=== PATIENT | male | born 1995 | race Caucasian/White ===

== ENCOUNTER → 2021-05-11 09:52 | Outpatient (BNVA) | payer OTHER, SELFPAY | PROVIDERS: Family Provider Family Medicine; PCP Family Medicine | DX: Z20.822 Contact with and (suspected) exposure to COVID-19 (principal) | CPT/HCPCS: 87635 ==

== ENCOUNTER → 2021-06-26 11:39 | Outpatient (BNVA) | payer OTHER, SELFPAY | PROVIDERS: Family Provider Family Medicine; Visit Provider Registered Nurse Neonatal Intensive Care | DX: Z20.822 Contact with and (suspected) exposure to COVID-19 (principal) | CPT/HCPCS: 87400; 87635; 87880 ==

== ENCOUNTER 2024-05-14 20:20 | Inpatient (IN) | payer OTHER, SELFPAY ==
[2024-05-14 20:24] VITALS: BP 130/79; PULSE 81; RESP 18; TEMP 36.4; O2SAT 97; BMI 23.7
--- NOTE | 2024-05-14 20:34 | ECG_ITS ---
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 Measurements Intervals [place] Rate: 63 P: 66 WI: 152 QRS: 89 QRSD: 89 T: 30 QT: 394 QTc: 406 Interpretive Statements SINUS RHYTHM Normal EKG No previous ECG available for comparison Electronically Signed On 05-15-2024 12:11:18 CDT by Becky Paz M.D. [email or web address]
--- NOTE | 2024-05-14 21:03 | ED.C_ITS ---
HPI - Psych 2 General: Chief Complaint: Psychiatric Symptoms Stated Complaint: MHE Time Seen by Provider: 05/14/24 20:26 History of Present Illness: 29-year-old man with severe PTSD after t he of a child recently who presents to the emergency room with family who had concern that he is having a breakdown and may be a danger to himself. He has admission planned to a more long-term care unit next week but they feel like he needs admitted today as he may be a threat to himself. He is not willing to speak with me much at this time. He says he is told the story and I can talk to the nurse. Related Data Previous Rx's Medication Instructions Recorded naproxen 500 mg tablet,delayed 500 mg PO BID #14 tabs 04/12/21 release (EC-Naproxen) tizanidine 2 mg tablet 2 mg PO Q6H PRN muscle spasticity 04/12/21 #20 tabs amoxicillin 500 mg capsule 500 mg PO BID 10 days #20 caps 06/26/21 Allergies Allergy/AdvReac Type Severity Reaction Status Date / Time peanut Allergy Severe ALGY-Swell Verified 06/26/21 11:36 Lip/Tongue/Throat cayenne pepper fruits Allergy ALGY-Swell Verified 06/26/21 11:36 Lip/Tongue/Throat Review of Systems 2 Narrative: Constitutional symptoms: Negative except as documented in HPI. Skin symptoms: Negative except as documented in HPI. Eye symptoms: Negative except as documented in HPI. ENMT symptoms: Negative except as documented in HPI. Respiratory symptoms: Negative except as documented in HPI. Cardiovascular symptoms: Negative except as documented in HPI. Gastrointestinal symptoms: Negative except as documented in HPI. Genitourinary symptoms: Negative except as documented in HPI. Musculoskeletal symptoms: Negative except as documented in HPI. Neurologic symptoms: Negative except as documented in HPI. Psychiatric symptoms: Negative except as documented in HPI. Endocrine symptoms: Negative except as documented in HPI. Physical Exam 2 Narrative: EXAM NARRATIVE: General: Alert, no acute distress. Skin: Warm, dry. Head: Normocephalic, atraumatic. Neck: Supple, trachea midline. Eye: Extraocular movements are intact. Ears, nose, mouth and throat: mucosa moist. Cardiovascular: Regular, Normal peripheral perfusion. Respiratory: Lungs are clear to auscultation, respirations are non-labored, breath sounds are equal, Symmetrical chest wall expansion. Gastrointestinal: Soft, Nontender, Non distended Musculoskeletal: Normal ROM, no deformity. Neurological: Alert and oriented, No focal neurological deficit observed. Psychiatric: Patient appears anxious and quite agitated at this time Course 2 Vital Signs: Vital signs: Vital Signs Temperature 97.5 F L 05/14/24 20:24 Pulse Rate 81 05/14/24 20:24 Respiratory Rate 18 05/14/24 20:24 Blood Pressure 130/79 05/14/24 20:24 Pulse Oximetry 97 05/14/24 20:24 [facility] - Psych Medical Decision Making Differential diagnosis: Patient with reported depression and suicidal ideation. concerns for infection, alcohol intoxication, cardiac issues or other medical problems prior to psychiatric admission. Workup: labwork, ekg ordered to evaluate the pathologies and to clear the patient medically prior to psychiatric admission Lab Review: Laboratory results were reviewed and interpreted by myself the emergency room physician. Lab review: - Medically cleared. - EKG shows no ischemic changes. - Blood alcohol level is negative, -Tylenol and salicylate levels are negative. -Urinalysis and drug screen are pending at admission - No anemia. - BUN and creatinine are within normal limits. Consultation: I spoke with Dr. Saba who agrees to admission Assessment and plan: PTSD Anxiety Agitation -Admission to neuropsychiatric unit for continued evaluation and treatment. - All lab work was reviewed and interpreted personally by myself, the ER physician - Evaluation and treatment of this problem were appropriate in the emergency setting Lab Data 05/14/24 21:30 05/14/24 21:30 Laboratory Results WBC 7.98 10^3/uL (3.29-11.43) 05/14/24 21:30 RBC 5.01 10^6/uL (3.85-5.65) 05/14/24 21:30 Hgb 14.80 g/dL (11.27-16.99) 05/14/24 21: Hct 43.9 % (37-53) 05/14/24 21: MCV 87.6 fl (82-101) 05/14/24 21:30 MCH 29.5 pg (27-33) 05/14/24 21: MCHC 33.7 g/dL (30-55) 05/14/24 21: RDW 11.9 % (12.1-15.1) L 10/30/24 21:30 Plt Count 215 10^3/cmm (157-399) 05/14/24 21:30 MPV 10.1 fL (7.4-10.4) 05/14/24 21: Neut % (Auto) 60.9 % 05/14/24 21: Lymph % (Auto) 30.6 % 05/14/24 21: Griggs % (Auto) 6.4 % 05/14/24 21: Eos % (Auto) 1.4 % 05/14/24 21:30 Baso % (Auto) 0.4 % 05/14/24 21: Neut # (Auto) 4.87 10^3/uL (1.8-7.7) 05/14/24: Lymph # (Auto) 2.4 10^3/uL (0.8-4.8) 05/14/24 21:30 Griggs # (Auto) 0.5 10^3/uL (0.2-0.9) 05/14/24 21: Eos # (Auto) 0.1 10^3/uL (0.0-0.8) 05/14/24 21: Baso # (Auto) 0.0 10^3/uL (0.0-0.1) 05/14/24: Nucleated RBC % (auto) 0 % 05/14/24: Nucleated RBCs # 0.0 /100WBC 05/14/24 21:30 Sodium 138 mmol/L (136-145) 05/14/24 21:30 Potassium 4.3 mmol/L (3.5-5.1) 05/14/24 21:30 Chloride 101 mmol/L (98-107) 05/14/24 21:30 Carbon Dioxide 27 mmol/L (22-29) 05/14/24 21:30 Anion Gap 14.3 (5-19) 05/14/24 21:30 BUN 12 mg/dL (6-20) 05/14/24 21:30 Creatinine 0.9 mg/dL (0.7-1.2) 05/14/24 21:30 GFR Calculation 99.1 mL/min (90-130) 05/14/24 21:30 Glucose 96 mg/dL (65-115) 05/14/24 21:30 Calculated Osmolality 286 mOsm/kg (285-295) 05/14/24 21:30 Calcium 9.0 mg/dL (8.5-10.5) 05/14/24 21:30 Total Bilirubin 0.5 mg/dL (0.15-1.2) 05/14/24 21:30 AST 38 U/L (0-40) 05/14/24 21:30 ALT 22 U/L (0-41) 05/14/24 21:30 Alkaline Phosphatase 134 U/L (40-130) H 05/14/24 21:30 Total Protein 7.8 g/dL (6.6-8.7) 05/14/24: Albumin 4.6 g/dL (3.5-5.2) 05/14/24: Globulin 3.2 g/dL (1.3-4.6) 05/14/24 21:30 TSH 1.39 uIU/mL (0.27-4.20) 05/14/24 21:30 Salicylates < 0.3 mg/dL (3-10) L 05/14/24 21:30 Acetaminophen < 5.0 ug/mL (10-30) L 05/14/24 21:30 Ethyl Alcohol < 10 mg/dL (0-10) 05/14/24 21:30 No radiology studies performed this visit Discharge Plan Discharge Patient Disposition: Admitted As Inpatient Admit Provider: Donald Saba Clinical Impression: Depression, Post traumatic stress disorder, Agitation Condition: Stable Coding Level of Care Code ED [employer] Laboratory Assistant for Davy Lin
--- NOTE | 2024-05-14 21:18 | PC.NURSE ---
Addendum entered by Denita Hogan RN 05/14/24 23:17: Dr. Moreno went into patient's room and attempted to speak to him about the Hold and patient would not listen to Dr. Moreno & patient told Dr. Moreno to leave his room. 96 Hour Involuntary Hold Rights have been placed with patient's personal items. Original Note: Attempted to read 96 Hour Involuntary Hold Patient Rights, patient took Rights paper away from me and crumpled it up and handed it back to me and stated I'm not here for this, I want to speak to someone to tell me why I'm here. Patient then asked Rug Dry Room Attendant Johnny Arana to escort me out of his room.
[2024-05-14 21:37] LABS: Basophils % 0.4 %; Eosinophils # 0.1 10^3/uL (0.0-0.8); Eosinophils % 1.4 %; Hematocrit 43.9 % (37-53); Lymphocytes # 2.4 10^3/uL (0.8-4.8); Lymphocytes % 30.6 %; Mean Corpuscular HGB Conc 33.7 g/dL (30-55); Mean Corpuscular Hemoglobin 29.5 pg (27-33); Mean Corpuscular Volume 87.6 fl (82-101); Mean Platelet Volume 10.1 fL (7.4-10.4); Monocytes # 0.5 10^3/uL (0.2-0.9); Monocytes % 6.4 %; Neutrophils # 4.87 10^3/uL (1.8-7.7); Neutrophils % 60.9 %; Nucleated Red Blood Cells % 0 %; Platelet Count 215 10^3/cmm (157-399); Red Blood Count 5.01 10^6/uL (3.85-5.65); Red Cell Distribution Width 11.9 % (12.1-15.1); White Blood Count 7.98 10^3/uL (3.29-11.43)
[2024-05-14 22:03] LABS: Acetaminophen < 5.0 ug/mL (10-30); Alanine Aminotransferase 22 U/L (0-41); Albumin Level 4.6 g/dL (3.5-5.2); Alcohol Level < 10 mg/dL (0-10); Alkaline Phosphatase 134 U/L (40-130); Anion Gap 14.3 (5-19); Aspartate Amino Transferase 38 U/L (0-40); Blood Urea Nitrogen 12 mg/dL (6-20); Carbon Dioxide 27 mmol/L (22-29); Chloride 101 mmol/L (98-107); Creatinine Clr Calc Pharmacy 144.5841; Globulin 3.2 g/dL (1.3-4.6); Glomerular Filtration Rate 99.1 mL/min (90-130); Glucose 96 mg/dL (65-115); Osmolality Calculated 286 mOsm/kg (285-295); Potassium 4.3 mmol/L (3.5-5.1); Salicylate < 0.3 mg/dL (3-10); Sodium 138 mmol/L (136-145); Thyroid Stimulating Hormone 1.39 uIU/mL (0.27-4.20); Total Bilirubin 0.5 mg/dL (0.15-1.2); Total Protein 7.8 g/dL (6.6-8.7)
[2024-05-14 22:52] VITALS: BP 121/72; PULSE 73; RESP 20; TEMP 36.9; O2SAT 98
[2024-05-14 23:23] VITALS: RESP 18
[2024-05-15 06:00] VITALS: BP 98/66; PULSE 63; RESP 18; O2SAT 99
--- NOTE | 2024-05-15 09:04 | PC.OT ---
OT EVALUATION ATTEMPTED; PATIENT VISITING WITH NURSE AND THEN AIRPORT REFUELING HANDLER. WILL ATTEMPT AGAIN LATER TODAY.
[2024-05-15] MEDS: diphenhydrAMINE 50 mg/mL SDV 1mL IM (14:45)
[2024-05-15] MEDS: LORazepam 2 mg/mL INJ 1 mL IM (14:45)
[2024-05-15] MEDS: haloperidol inj 5 mg/mL INJ 1 mL IM (14:45)
--- NOTE | 2024-05-15 16:49 | W.PM.NPUH&PS ---
Providers/Chief Complaint Admitting Physician: Donald Saba MD Chief Complaint: MHE HPI NPU History of Present Illness Rubio Conte is a 29 year old male who presented to the emergency department accompanied by family members. The family members had provided an affidavit including the patient himself stating that they were concerned that Rubio was having a mental breakdown. The family had been concerned that the patient may be a danger to himself. The patient was admitted to the neuropsychiatric unit for further evaluation and treatment. The patient was an extremely guarded and agitated historian and was unable to provide any meaningful information regarding his reason for being here. The patient allegedly had endured a tragedy when his child of approximately 1 year had due to medical causes in the home in December 2023. The patient had allegedly witnessed the of the child and had apparently been holding child after his . The patient had described to staff having problems with intense nightmares and difficulty falling asleep. The patient had allegedly been unable to take this event out of his mind and had been having reoccurring thoughts and visions regarding the of his child. The patient had reported to staff that he was having plans to leave here immediately and reported that he had already had made plans to go to a long-term facility. The patient on interview had expressed displeasure that the team had not interviewed him earlier requesting that the database report writer of this note having been present immediately after admission. He had stated that he was upset that the database report writer of this note was not certain of what medications he was on. At that point, the patient had stated that he did not wish to talk to the database report writer of the note any longer and became agitated to the point that he had required as needed medications due to significant aggression. The patient had extraordinary irritability. He had allegedly been on medications reportedly Vyvanse, Viibryd, propranolol, and prazosin prescribed by a nurse practitioner and had the he had discontinued these medications 2 weeks ago with family members reporting significant changes in mood and increased anger and agitation noted. Patient had not endorsed any illicit drug use or alcohol use currently. Inpatient psychiatric history: None reported Outpatient psychiatric history: Unknown, although the patient had been placed on medications including Vyvanse, Viibryd, propranolol, and prazosin at unspecified doses. Medical history: None Surgical history: none Allergies: Peanut, cayenne pepper foods Current medications: None Substance abuse history unknown Legal history: Unknown Family psychiatric history: Unknown Social history: Patient is and has other children in the home. 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 He had reported the traumatic of a child 2023. Meds NPU Home Medications Medication Instructions Recorded Confirmed Last Taken Type No Known Home Medications 05/15/24 05/15/24 Unknown History Allergies Allergy/AdvReac Type Severity Reaction Status Date / Time peanut Allergy Severe ALGY-Swell Verified 06/26/21 11:36 Lip/Tongue/Throat cayenne pepper fruits Allergy ALGY-Swell Verified 06/26/21 11:36 Lip/Tongue/Throat Mental Status Exam MSE Comments: Patient is a tall medium build white male who appeared his stated age with a disheveled appearance and normal gait. There was no evidence of any at abnormal involuntary motor movements, tics, or tremors appreciated. There was profound psychomotor agitation as he had been witnessed to punching monzon. His speech was loud and somewhat pressured at times. His mood was described as fine. His affect was intense, angry and labile. His thought process was mostly linear with significant use of projection. He denied any homicidal or suicidal ideation. There was clear evidence of grandiosity, ideas of reference and clear belief in the patient believing he was extraordinary and special. He was alert and oriented to person and place at least. His recent and remote memory were not tested. His impulse control was impaired. His insight is nonexistent. His judgment is poor. His attention span was impaired as well. Vitals/I&O/Wt Last Vital Signs Temp 98.5 F 05/14/24 22:52 Pulse 63 05/15/24 06:00 Resp 18 05/15/24 06:00 BP 98/66 05/15/24 06:00 Pulse Ox 99 05/15/24 06:00 O2 Del Method Room Air 05/15/24 06:00 Weight last 48 hrs Weight 86.183 kg Data NPU 05/14/24 21:30 05/14/24 21:30 A&P Assessment and plan (1) Bipolar affective, manic, unspec: (2) Post traumatic stress disorder: Plan 29-year-old male admitted with concerns by family of the patient being suicidal or homicidal having endured a traumatic episode but appearing quite agitated, and possibly manic. The patient will continue to require acute inpatient hospitalization. #1.? Engage patient in individual milieu and group therapy.? #2? Encourage sober living treatment after discharge at the highest level of care to which he is willing to commit. #3??? Prn medication for agitation including Haldol/Cogentin. #4?? TO-15 minute checks? #5?? Will attempt to gather collateral information Involuntary Hold Information 96 Hour Hold: 96 Hour Involuntary Admission: Yes 96 Hour Hold Ending Date: 05/20/24 96 Hour Hold Ending Time: 20:48 Attestations NPU Medical Necessity Statement*: Inpatient hospitalization is medically necessary and deemed to ?be ?the clinically appropriate intervention ?at this time.? We will monitor/initiate medications and make changes as indicated.? The patient will be in the hospital for over 2 midnights.? The patient?s likely length of stay 7-10 days. Coding Level of Care Code Acute Code for g Fwd Diagnoses Bipolar affective, manic, unspec F31.10 Post traumatic stress disorder F43.10
[2024-05-15 19:33] VITALS: RESP 18
[2024-05-16 05:57] VITALS: BP 98/57; PULSE 57; RESP 18; TEMP 36.4; O2SAT 99
[2024-05-16 09:39] LABS: Bilirubin Urine Negative (Negative); Blood Urine Negative (Negative); Glucose Urine UA Negative (Normal); Ketones Urine Trace (Negative); Leukocyte Esterase Urine Trace (Negative); Nitrate Urine Negative (Negative); Protein Urine Negative (Negative); Specific Gravity, Urine 1.023 (1.005-1.030); Urine Appearance Clear (CLEAR); Urine Color Yellow (Yellow)
[2024-05-16 09:44] LABS: Bacteria Urine None Seen /hpf; Hyaline Casts Urine 2.05 /lpf; RBC Urine 0-2 /hpf (0-2); Squamous Epithelial Cell Urine 0-5 /hpf (0-5); WBC Urine 0-5 /hpf (0-5)
[2024-05-16 10:01] LABS: Amphetamines Screen Urine Negative (Negative); Barbiturates Screen Urine Negative (Negative); Benzodiazepines Screen Urine Positive (Negative); Cocaine Screen Urine Negative (Negative); Mucus Urine 2+ /hpf; Opiate Screen Urine Negative (Negative); PCP Screen Urine Negative (Negative); THC Screen Urine Positive (Negative)
[2024-05-16] MEDS: propranolol 20 mg Tablet PO ×2 (10:14→18:46)
--- NOTE | 2024-05-16 11:45 | PC.NURSE ---
IN BED RESTING. DENIES PAIN. REPORTS HE PINKY TOE IS BROKEN AND I HAVE A WOUND ON THE SIDE OF MY FOOT. PT REQUESTS THIS RN TO APPLY A BANDAGE TO A VERY SMALL SCRATCH TO THE SIDE LEFT FOOT. PT ALSO REQUEST HIS PINKY TOE BE PADDED TO PROTECT IT, A SMALL PADDED BANDAGE WAS APPLIED REQUESTED. PT DENIES SI/HI AND AVH AT THIS TIME. RATES ANXIETY 07/25 AND DEPRESSION 07/25. REPORTS HE SLEPT GREAT PT STATES HIS GOAL TODAY IS TO GET MY DOG SERVICED DOG APPROVED AND GET INTO [facility]. PT MADE STATEMENTS THAT HE WANTED TO BE DISCHARGED TODAY. EDUCATION PROVIDED ON HOLD PROCESS. PT IN BETTER SPIRITS TODAY AND MORE RECEPTIVE TO EDUCATION GIVEN. ALL QUESTIONS WERE ANSWERED AND SUPPORT WAAS VOICED.
[2024-05-16 14:00] VITALS: BP 110/65; PULSE 68; RESP 16; TEMP 37; O2SAT 95
--- NOTE | 2024-05-16 15:12 | P.NPUPN_ITS ---
Subjective NPU 2 Subjective: Patient presented today reporting that he was doing okay but feeling very frustrated about being here. He continued to express his vision of going to this program that had been identified by he and his family but seem to have limited ability to step back and see this process as a continuum on his way to that program with this step just identifying that he is safe to be in the other program. He continued to have grandiosity versus significant entitlement as he outlined his plan to go to [facility] on Sunday but not able to really appreciate that not being a part of what programs do when they are identifying and judging for safety. He was highly preoccupied with a less than noteworthy abrasion on his foot that he was expressing fear that it might get infected. He also talked about discomfort with being here because of this being a hospital that has killed many people. We discussed the likelihood of obtaining collateral information and the possibility of him moving all to this program once we have identified his safety for discharge. He was resistant to medication including past medication reporting I like to get through this on my own. Mental Status Exam 2 MSE Comments: This is a tall well-nourished well-developed white male in hospital scrubs with limited grooming and adequate contact. No abnormal movements except for mild psychomotor retardation with mild psychomotor agitation at times during the interview. Speech was mostly normal rate and volume with occasional increase in rate and volume. Mood described as frustrated, affect congruent. Thought process was linear. Thought content: Patient denied suicidal or homicidal ideation, there were no delusions reported but possible grandiose thinking, ideas of reference with some question of whether he was extremely entitled or grandiose at times. He denied auditory or visual hallucinations. Attention and concentration were limited and memory was seeming reliable but will need some collateral information to clarify but no more formally tested. He was alert and oriented times person and place. Insight and judgment are impaired and impulse control was limited impaired. Vitals/I&O/Wt Last Vital Signs Temp 97.5 F L 05/16/24 05:57 Pulse 57 L 05/16/24 05:57 Resp 18 05/16/24 05:57 BP 98/57 05/16/24 05:57 Pulse Ox 99 05/16/24 05:57 O2 Del Method Room Air 05/16/24 05:57 Weight last 48 hrs Weight 86.183 kg Data NPU 05/14/24 21:30 05/14/24 21:30 A&P Assessment and plan (1) Bipolar affective, manic, unspec: (2) Post traumatic stress disorder: Plan 29-year-old male admitted with concerns by family of the patient being suicidal or homicidal having endured a traumatic episode but appearing quite agitated, and possibly manic. The patient will continue to require acute inpatient hospitalization. 1. Continue current medication. 2.? Encourage sober living treatment after discharge at the highest level of care to which he is willing to commit. 3.??Continue every 15 minute checks for safety. 4. Obtain collateral information. Involuntary Hold Information 2 96 Hour Hold: 96 Hour Involuntary Admission: Yes 96 Hour Hold Ending Date: 05/20/24 96 Hour Hold Ending Time: 20:48 Attestations NPU 2 Medical Necessity Statement*: Inpatient hospitalization is medically necessary and?the clinically appropriate intervention at this time.? We will monitor/initiate medications and make changes as indicated. Likely length of stay 3-5 days. Coding Level of Care Code Acute Code for [facility] Diagnoses Bipolar affective, manic, unspec F31.10 Post traumatic stress disorder F43.10
--- NOTE | 2024-05-16 16:08 | PC.NURSE ---
PT UPSET THAT VISITORS WERE ALLOWED BACK TO SEE HIM AND REQUESTS THAT ALL VISITORS BE ANNOUNCED PRIOR TO COMING IN. WILL PASS ON TO STAFF AND NOTE PLACED IN VISITORS BOOK.
[2024-05-16] MEDS: neomycin-poly-bacitracin oint 28 gm 1 APPLIC TOPICAL (18:46)
[2024-05-16] MEDS: trazodone 50 mg Tablet PO (21:20)
[2024-05-16] MEDS: loperamide 2 mg Capsule PO (21:20)
[2024-05-16] MEDS: hyDROXYzine 25 mg Capsule 50 MG PO (21:20)
[2024-05-16 21:47] VITALS: BP 108/67; PULSE 89; RESP 18; TEMP 36.8; O2SAT 97
[2024-05-17 06:00] VITALS: BP 95/56; PULSE 67; RESP 15; O2SAT 99
--- NOTE | 2024-05-17 07:02 | P.NPUPN_ITS ---
Subjective NPU 2 Subjective: Patient presented today continuing to be focused on discharge in relation to going to [facility] tomorrow. We discussed the fact that we do not release people for [place] and have them return. We also continue to discuss concerns about possible grandiosity and need for vinita treatment. He continues to endorse not wanting to take medications unless absolutely necessary and is not open to this being a necessary situation at this point. He denied any side effects to the propranolol. Mental Status Exam 2 MSE Comments: This is a tall well-nourished well-developed white male in hospital scrubs with limited grooming and adequate contact. No abnormal movements except for mild psychomotor retardation with mild psychomotor agitation at times during the interview. Speech was mostly normal rate and volume with occasional increase in rate and volume. Mood described as frustrated, affect congruent. Thought process was linear. Thought content: Patient denied suicidal or homicidal ideation, there were no delusions reported but possible grandiose thinking, ideas of reference with some question of whether he was extremely entitled or grandiose at times. He denied auditory or visual hallucinations. Attention and concentration were limited and memory was seeming reliable but will need some collateral information to clarify but no more formally tested. He was alert and oriented times person and place. Insight and judgment are impaired and impulse control was limited impaired. Vitals/I&O/Wt Last Vital Signs Temp 98.4 F 05/17/24 22:00 Pulse 65 05/17/24 22:00 Resp 16 05/17/24 22:00 BP 96/57 05/17/24 22:00 Pulse Ox 97 05/17/24 22:00 O2 Del Method Room Air 05/17/24 22:00 Data NPU 05/14/24 21:30 05/14/24 21:30 A&P Assessment and plan (1) Bipolar affective, manic, unspec: (2) Post traumatic stress disorder: Plan 29-year-old male admitted with concerns by family of the patient being suicidal or homicidal having endured a traumatic episode but appearing quite agitated, and possibly manic. The patient will continue to require acute inpatient hospitalization. 1. Continue current medication. Though he is no longer taking Viibryd or Vyvanse. We continue to discuss the likely need for mood stabilizer. 2.? Encourage sober living treatment after discharge at the highest level of care to which he is willing to commit. 3.??Continue every 15 minute checks for safety. 4. Obtain collateral information. We discussed speaking with about the circumstances that led to her admission to determine where to go next. Involuntary Hold Information 2 96 Hour Hold: 96 Hour Involuntary Admission: Yes 96 Hour Hold Ending Date: 05/20/24 96 Hour Hold Ending Time: 20:48 Attestations NPU 2 Medical Necessity Statement*: Inpatient hospitalization is medically necessary and?the clinically appropriate intervention at this time.? We will monitor/initiate medications and make changes as indicated. Likely length of stay 3-5 days. Coding Level of Care Code Acute Code for Chg Fwd Diagnoses Bipolar affective, manic, unspec F31.10 Post traumatic stress disorder F43.10
--- NOTE | 2024-05-17 08:42 | PC.NURSE ---
Propranolol held d/t low BP of 95/56.
--- NOTE | 2024-05-17 10:07 | PC.NURSE ---
MORNING ASSESSMENT During morning assessment, patient cooperative and calm. Patient denies anxiety, depression, suicidal ideation, homicidal ideation, and hallucinations. Patient stated that he is doing better than yesterday. Patient requesting a drink. Patient denies pain, questions. Patient given a drink.
--- NOTE | 2024-05-17 12:11 | PC.NURSE ---
Patient stopped this nurse in the hallway and said that he feels depressed, rates it at 7/10. Patient said that he just wants to sleep until he is discharged, that he doesn't have an appetite. This nurse asked what would help him feel better, but patient unable to come up with something that would help. Patient informed to let staff know if he has any needs. Understanding was verbalized by patient.
--- NOTE | 2024-05-17 13:10 | PC.NURSE ---
This patient reports lightheadness. This nurse told patient to sit on the bench while I got him a drink and that I would check his vitals. Patient returned to room before this nurse arrived with drink and vitals machine. Patient given fruit punch and VS were checked. VS were WNLs. Patient said I don't know why I am even here, I just want to go home. The patient said that he wishes to speak with the doctor. Patient was informed that doctor isn't here right now. Patient said, is there another doctor available. After patient was told that there is not another psychiatrist available, patient said, well that figures and threw the pulse oximeter at this nurse. This nurse told patient that it is not appropriate to throw things. Patient said something along the lines of, you better not talk to me like that if you know what is good for you. This nurse decided to give patient some space, so left. Patient abruptly followed, raising his voice at staff. Patient got on phone and called his saying that staff are mistreating him. Patient's called this nurse and said that patient is not being taken care of, that she is going to file complaints. Per , patient is not being fed. Patient is being neglected. Patient has not been seen by the doctor. This nurse had to put on hold as LOU Davis had pertinent information to tell me about another patient. When this nurse got back on phone, said, I will not be placed on hold again. Attempts to talk with were not productive. This nurse encouraged to contact warehouse specialist and community development coordinator.
[2024-05-17 14:00] VITALS: BP 107/60; PULSE 71; RESP 18; TEMP 36.6; O2SAT 95
--- NOTE | 2024-05-17 15:21 | PC.NURSE ---
This nurse talked with patient in his room for a while. Patient opened up, talking about what he desires for happiness, which includes love and hugs from family and friends. Patient stated that he doesn't want to be on a bunch of medications that just make him sleep. Patient said that he sees a therapist two times each week and just got set up with a support animal. Patient says that what brought him in was his family member who was drunk. After patient made statement about a feeling of impending doom, patient stated it always feels like something bad is going to happen. This nurse asked if this was perhaps anxiety. Patient was agreeable that maybe that is what that is. Patient denies suicidal thoughts. Patient says he doesn't want to hurt himself, that he wants to watch his family grow and thrive. Patient says that if his family member ([id number]?) hadn't been drunk, then he never would have been brought in to the hospital. Patient says that his plan is to go to a rehabilitation on Sunday. Prior to that, he would like released so he can spend time with his loved ones. Patient stated, I will do whatever it takes to get out of here. If you have to give me shots, I don't care if that means I can sleep until it is time to leave. Patient apologized to this nurse about what had transpired earlier. This nurse and patient shook hands and agreed to start over. Patient was agreeable to take a zyprexa for anxiety. This nurse then took patient and other patients outside on the patio. Patient appeared to be in good spirits, playing cornhole and the ball toss gain and chatting with other patients.
--- NOTE | 2024-05-17 15:32 | PC.NURSE ---
At approximately noon, patient had come up wanting to talk. When I went to see the patient in his room to have a conversation and explore therapeutic options, the patient put his hands over his ears and closed his eyes and stated I am really just so anxious that its a medical emergency and I need to close my ears and eyes at the moment, so I can not hear you . The patient then opened his eyes and said I have been here with no help and I am just sitting here and its making me worse. The patient was informed that if he needed to talk, he would have to inform staff and he was offered PRN medication to ease his anxiety which patient replied All you guys want to do is drug me up, and my two options are to beg and beg to be released or have you guys pump me full of drugs to get high and sleep. The patient was informed that he has the option to refuse the PRN medications however they are offered to ease anxiety, not to get him high . Patient was educated on how the medications worked extensively and why they were offered however the patient replied You guys create addicts by popping pills to patients and everytime you stick them with needles it is like giving them a crack pipe and I am not a drug user, my drug is my family and when you guys shove pills down my throat, I am going to be here longer. The patient was educated on that his length of stay does not correlate with him taking PRN medications, however mid conversation, the patient stomped off to the patient phone and said I will be talking to my about this.
--- NOTE | 2024-05-17 15:34 | PC.NURSE ---
Following shower, this nurse offered to change bandage on patient's foot. Patient declined, stating that he wanted it open to air, that it is doing better, per patient.
[2024-05-17] MEDS: OLANZapine 5 mg ODT PO ×2 (16:30→21:36)
[2024-05-17] MEDS: propranolol 20 mg Tablet PO (17:49)
--- NOTE | 2024-05-17 18:31 | PC.NURSE ---
During visiting hour, patient and his was standing in doorway of patient's room. This nurse and SAMUEL Lloyd informed them that they have to meet either in the dayroom or on the bench. Patient and were walking toward bench, when patient stopped staff and said, Hey, I got something in my pocket for ya! Patient dug in his pocket and pulled out his hand, flipping us off. As a continuation of patient's apparent good humor, this nurse said, I have two of those! and chuckled. Patient's became irate, saying that this nurse is unprofessional and that this nurse doesn't know how to treat people appropriately. Patient yelling and pointing her finger. This nurse informed them that I thought they were joking, and apologized. This nurse notified dip unit operator Aydee and Dr. Jo.
[2024-05-17] MEDS: acetaminophen 325 mg Tablet 650 MG PO (21:34)
[2024-05-17] MEDS: trazodone 50 mg Tablet PO (21:36)
[2024-05-17] MEDS: nicotine 2 mg Gum BUCCAL (21:36)
[2024-05-17 22:00] VITALS: BP 96/57; PULSE 65; RESP 16; TEMP 36.9; O2SAT 97
[2024-05-18 06:00] VITALS: BP 105/61; PULSE 52; RESP 16; O2SAT 98
--- NOTE | 2024-05-18 08:12 | PC.NURSE ---
Morning assessment During morning assessment, patient stated that he is thankful that he is here on the unit. Patient said that while here, he had a complete mental breakdown . Patient said that prior to coming here, he was on the edge of that and was thankfully brought in. Patient said, what you saw of me is not the real me, this is the real me . Patient says that he currently feels recharged, at peace and calm. Patient said he is interested in medication for anxiety but that his ultimate goal is to be medication-free. Patient reports some back pain, states that he has a history of back issues and needs to see his chiropractor. Patient offered Tylenol/Ibuprofen, but patient declined, stating that what really works for him is CBD oil. Calm and cooperative during morning assessment.
[2024-05-18] MEDS: neomycin-poly-bacitracin oint 28 gm 1 APPLIC TOPICAL ×2 (08:42→20:31)
[2024-05-18] MEDS: propranolol 20 mg Tablet PO ×2 (08:42→20:28)
[2024-05-18] MEDS: ARIPiprazole 10 mg Tablet 5 MG PO (11:00)
[2024-05-18] MEDS: promethazine 25 mg Tablet PO (11:01)
[2024-05-18] MEDS: nicotine 4 mg lozenge MUCOUS MEM ×2 (11:04→17:18)
--- NOTE | 2024-05-18 11:30 | PC.NURSE ---
Per Dr. Jo, this nurse started abilify 5mg PO. Patient provided with print outs about this medication. Patient informed that if he has any questions/concerns to let this nurse know. Patient verbalized understanding.
--- NOTE | 2024-05-18 11:35 | PC.NURSE ---
Patient requesting to have a bible study group. This nurse informed patient that he is welcome to do this. Patient asked to go outside to do this. This nurse declined at this time because of the rainy weather. Patient then said, so can I gather people up so we can go outside. This nurse reminded patient that the rainy weather makes it impossible to go outside at this time, but perhaps later. Patient also had this nurse correct the wall clock, align it so it is more straight on the wall.
[2024-05-18 14:00] VITALS: BP 119/78; PULSE 87; RESP 18; TEMP 36.8; O2SAT 98
--- NOTE | 2024-05-18 15:06 | P.NPUPN_ITS ---
Subjective NPU 2 Subjective: Patient presented today reporting that he is feeling better. He continued to lobby for discharge and continued to show limited to no insight into why they would continue to hospitalize him and stabilized the medication. We discussed the risks, benefits and alternatives of initiating Abilify with a plan to titrate the dose and he understood and agreed to proceed as is documented in this note. He was a bit irritable when identifying that he was not to get to go home and had at one point threatened to stop taking the medication only later to return in report that he would try. He denied any side effects of the medication. Mental Status Exam 2 MSE Comments: This is a tall well-nourished well-developed white male in hospital scrubs with limited grooming and adequate contact. No abnormal movements except for mild psychomotor retardation with mild psychomotor agitation at times during the interview. Speech was mostly normal rate and volume with occasional increase in rate and volume. Mood described as frustrated, affect congruent. Thought process was linear. Thought content: Patient denied suicidal or homicidal ideation, there were no delusions reported but possible grandiose thinking, ideas of reference with some question of whether he was extremely entitled or grandiose at times. He denied auditory or visual hallucinations. Attention and concentration were limited and memory was seeming reliable but will need some collateral information to clarify but no more formally tested. He was alert and oriented times person and place. Insight and judgment are impaired and impulse control was limited impaired. Vitals/I&O/Wt Last Vital Signs Temp 98.4 F 05/17/24 22:00 Pulse 52 L 05/18/24 06:00 Resp 16 05/18/24 06:00 BP 105/61 05/18/24 06:00 Pulse Ox 98 05/18/24 06:00 O2 Del Method Room Air 05/18/24 06:00 Weight last 48 hrs Weight 85.389 kg Data NPU 05/14/24 21:30 05/14/24 21:30 A&P Assessment and plan (1) Bipolar affective, manic, unspec: (2) Post traumatic stress disorder: Plan 29-year-old male admitted with concerns by family of the patient being suicidal or homicidal having endured a traumatic episode but appearing quite agitated, and possibly manic. The patient will continue to require acute inpatient hospitalization. 1. Continue current medication. Though he is no longer taking Viibryd or Vyvanse. We continue to discuss the likely need for mood stabilizer. Started Abilify 5 mg p.o. daily with a plan to increase to 10 mg p.o. daily tomorrow. 2.? Encourage sober living treatment after discharge at the highest level of care to which he is willing to commit. 3.??Continue every 15 minute checks for safety. 4. Conversation with was very fruitful and supportive of this being a clear manic episode. We met today and discussed a plan for moving forward with medication and continued hospitalization until he stabilized even though he is having significant resistance. Involuntary Hold Information 2 96 Hour Hold: 96 Hour Involuntary Admission: Yes 96 Hour Hold Ending Date: 05/20/24 96 Hour Hold Ending Time: 20:48 Attestations NPU 2 Medical Necessity Statement*: Inpatient hospitalization is medically necessary and?the clinically appropriate intervention at this time.? We will monitor/initiate medications and make changes as indicated. Likely length of stay 3-5 days. Coding Level of Care Code Acute Code for [facility] Diagnoses Bipolar affective, manic, unspec F31.10 Post traumatic stress disorder F43.10
[2024-05-18] MEDS: nicotine 2 mg Gum BUCCAL (17:54)
[2024-05-18] MEDS: acetaminophen 325 mg Tablet 650 MG PO (20:28)
[2024-05-18] MEDS: trazodone 50 mg Tablet PO (20:28)
[2024-05-18] MEDS: OLANZapine 5 mg ODT PO (20:29)
[2024-05-18 22:00] VITALS: BP 120/67; PULSE 90; RESP 18; TEMP 36.6; O2SAT 97
[2024-05-18] MEDS: metoclopramide 10 mg Tablet PO (23:23)
[2024-05-19] MEDS: diphenhydrAMINE 50 mg Capsule PO (01:14)
[2024-05-19 06:00] VITALS: BP 103/65; PULSE 80; RESP 16; O2SAT 97
[2024-05-19] MEDS: neomycin-poly-bacitracin oint 28 gm 1 APPLIC TOPICAL (08:48)
[2024-05-19] MEDS: ARIPiprazole 10 mg Tablet PO (08:48)
[2024-05-19] MEDS: propranolol 20 mg Tablet PO ×2 (08:48→20:04)
[2024-05-19] MEDS: loperamide 2 mg Capsule PO (09:46)
[2024-05-19] MEDS: nicotine 4 mg lozenge MUCOUS MEM ×2 (12:28→16:58)
--- NOTE | 2024-05-19 12:29 | PC.NURSE ---
PT CONTINUES TO COME TO NURSES STATION WITH MULTIPLE REQUESTS AND STATES HE WANTS TO SEE THE OB SCRUB TECH AGAIN SINCE NONE OF YOU CAN HELP ME. THIS RN CONTACTED OB SCRUB TECH AND AN APT WAS MADE TO SEE PT TOMORROW AT 8:00-9:00 AM. INFORMATION RELAYED TO PT. PT STATED I'M HAVING A PANIC ATTACK AND NEED TO SPEAK TO SOMEONE. THIS RN ATTEMPTED TO TELL PT I WOULD SPEAK TO HIM AFTER I ASSISTED ANOTHER PT TO HER ROOM. PT STOMPED OFF AND STATED YOU DON'T EVEN WANT TO HELP ME. RN ATTEMPTED AGAIN TO ASSURE PT THAT THIS RN HAD TO ASSIST A CONFUSED PT TO HER ROOM BEFORE I CAME TO TALK TO HIM. PT THREW UP HIS HANDS AND STATED I DON'T WANT TO HEAR IT. NO ONE HERE CAN HELP ME I NEED ONE TO ONE COUNSELING. PT WAS INFORMED THAT THE NURSING STAFF ARE NOT LICENSED COUNSELORS OR THERAPISTS BUT CAN LISTEN AND OFFER COPING SKILLS AND MEDICATIONS. INFORMED MILL HAND PLATE MILL OF PT STATEMENTS AND BEHAVIORS AND SHE WENT TO SEE PT. SUPPORT VOICED.
[2024-05-19] MEDS: OLANZapine 5 mg ODT PO ×2 (12:43→16:55)
[2024-05-19 14:00] VITALS: BP 100/60; PULSE 74; TEMP 36.4
--- NOTE | 2024-05-19 14:44 | W.PM.NPUPNS ---
Subjective NPU Subjective: Patient presented today reporting that he is doing better. He reports that the increased in the Abilify was helpful and we agreed to stay at the current dose at least for 1 more day to identify if there are any side effects or negatives to it. We continued to discuss working with the outside facility that he will transfer to to identify when they will be ready for him. He denied any additional side effects of medication. Mental Status Exam MSE Comments: This is a tall well-nourished well-developed white male in hospital scrubs with limited grooming and adequate contact. No abnormal movements except for mild psychomotor retardation with mild psychomotor agitation at times during the interview. Speech was mostly normal rate and volume with occasional increase in rate and volume. Mood described as frustrated, affect congruent. Thought process was linear. Thought content: Patient denied suicidal or homicidal ideation, there were no delusions reported but possible grandiose thinking, ideas of reference with some question of whether he was extremely entitled or grandiose at times. He denied auditory or visual hallucinations. Attention and concentration were limited and memory was seeming reliable but will need some collateral information to clarify but no more formally tested. He was alert and oriented times person and place. Insight and judgment are impaired and impulse control was limited impaired. Vitals/I&O/Wt Last Vital Signs Temp 97.5 F L 05/19/24 14:00 Pulse 74 05/19/24 14:00 Resp 16 05/19/24 06:00 BP 100/60 05/19/24 14:00 Pulse Ox 97 05/19/24 06:00 O2 Del Method Room Air 05/19/24 06:00 Weight last 48 hrs Weight 85.389 kg Data NPU 05/14/24 21:30 05/14/24 21:30 A&P Assessment and plan (1) Bipolar affective, manic, unspec: (2) Post traumatic stress disorder: Plan 29-year-old male admitted with concerns by family of the patient being suicidal or homicidal having endured a traumatic episode but appearing quite agitated, and possibly manic. The patient will continue to require acute inpatient hospitalization. 1. Continue current medication. Though he is no longer taking Viibryd or Vyvanse. Started Abilify 5 mg p.o. daily and increased to 10 mg p.o. daily. 2.? Encourage sober living treatment after discharge at the highest level of care to which he is willing to commit. 3.??Continue every 15 minute checks for safety. 4. Conversation with was very fruitful and supportive of this being a clear manic episode. We met today and discussed a plan for moving forward with medication and continued hospitalization until he stabilized even though he is having significant resistance. Involuntary Hold Information 96 Hour Hold: 96 Hour Involuntary Admission: Yes 96 Hour Hold Ending Date: 05/20/24 96 Hour Hold Ending Time: 20:48 Other Hold: Hold End Date: 05/20/24 Attestations NPU Medical Necessity Statement*: Inpatient hospitalization is medically necessary and?the clinically appropriate intervention at this time.? We will monitor/initiate medications and make changes as indicated. Likely length of stay 2-4 days. Coding Level of Care Code Acute Code for [facility] Fwd Diagnoses Bipolar affective, manic, unspec F31.10 Post traumatic stress disorder F43.10
[2024-05-19] MEDS: acetaminophen 325 mg Tablet 650 MG PO (18:14)
--- NOTE | 2024-05-19 18:31 | PC.NURSE ---
ZYDIS 5 MG GIVEN FOR INCREASED REPORTS OF ANXIETY.
[2024-05-19 19:40] VITALS: BP 106/54; PULSE 77; RESP 18; TEMP 36.8; O2SAT 97
[2024-05-19] MEDS: doxepin 10 mg Capsule PO (20:04)
[2024-05-19] MEDS: nicotine 2 mg Gum BUCCAL (20:56)
[2024-05-19] MEDS: zolpidem 5 mg Tablet PO (22:39)
[2024-05-20 06:00] VITALS: BP 99/54; PULSE 79; RESP 17; O2SAT 97
[2024-05-20] MEDS: ARIPiprazole 10 mg Tablet PO (08:56)
[2024-05-20] MEDS: propranolol 20 mg Tablet PO ×2 (08:56→21:08)
[2024-05-20] MEDS: nicotine 4 mg lozenge MUCOUS MEM ×2 (12:59→16:48)
[2024-05-20] MEDS: hyDROXYzine 25 mg Capsule 50 MG PO (13:53)
--- NOTE | 2024-05-20 13:59 | PC.NURSE ---
Patient states his palms are sweaty and he feels anxious. Patient was given vistaril 50mg po. He did say he was glad in a way that he had to be here because he thought he had hit rock bottom before, but now realizes he has more work to do.
[2024-05-20 14:00] VITALS: BP 101/62; PULSE 80; RESP 16; TEMP 37.1; O2SAT 96
--- NOTE | 2024-05-20 16:54 | P.NPUPN_ITS ---
Subjective NPU 2 Subjective: Patient presented today reporting that he is doing fine. He continues to have limited insight however he will be discharging to a program that can serve as a stepdown and the medication is assisting with improvement. Also we will likely discharge tomorrow and allow him to continue at the inpatient program that they have arranged which he reports he can become any day. We discussed the fact that he continues to be impaired and should follow through with his treatment and understand that he has significant strides he can make she participates. He endorsed feeling some tiredness from the medication slowly discussed the plan to move it to the evening or nighttime. Mental Status Exam 2 MSE Comments: This is a tall well-nourished well-developed white male in hospital scrubs with limited grooming and adequate contact. No abnormal movements except for mild psychomotor retardation with mild psychomotor agitation at times during the interview. Speech was mostly normal rate and volume with occasional increase in rate and volume. Mood described as frustrated, affect congruent. Thought process was linear. Thought content: Patient denied suicidal or homicidal ideation, there were no delusions reported with grandiose thinking decreasing, ideas of reference with some question of whether he has narcissism intermixed. He denied auditory or visual hallucinations. Attention and concentration were limited and memory was seeming reliable but will need some collateral information to clarify but no more formally tested. He was alert and oriented times person and place. Insight and judgment are impaired and impulse control was limited impaired. Vitals/I&O/Wt Last Vital Signs Temp 98.8 F 05/20/24 14:00 Pulse 80 05/20/24 14:00 Resp 16 05/20/24 14:00 BP 101/62 05/20/24 14:00 Pulse Ox 96 05/20/24 14:00 O2 Del Method Room Air 05/20/24 14:00 Data NPU 05/14/24 21:30 05/14/24 21:30 A&P Assessment and plan (1) Bipolar affective, manic, unspec: (2) Post traumatic stress disorder: Plan 29-year-old male admitted with concerns by family of the patient being suicidal or homicidal having endured a traumatic episode but appearing quite agitated, and possibly manic. The patient will continue to require acute inpatient hospitalization. 1. Continue current medication. Though he is no longer taking Viibryd or Vyvanse. Started Abilify 5 mg p.o. daily and increased to 10 mg p.o. daily. 2.? Encourage sober living treatment after discharge at the highest level of care to which he is willing to commit. 3.??Continue every 15 minute checks for safety. 4. Tentative plan for discharge tomorrow. 5. Encourage individual, group and milieu therapies. Involuntary Hold Information 2 96 Hour Hold: 96 Hour Involuntary Admission: Yes 96 Hour Hold Ending Date: 05/20/24 96 Hour Hold Ending Time: 20:48 Other Hold: Hold End Date: 05/20/24 Attestations NPU 2 Medical Necessity Statement*: Inpatient hospitalization is medically necessary and?the clinically appropriate intervention at this time.? We will monitor/initiate medications and make changes as indicated. Likely length of stay 1-3 days. Coding Level of Care Code Acute Code for [facility] Fwd Diagnoses Bipolar affective, manic, unspec F31.10 Post traumatic stress disorder F43.10
[2024-05-20] MEDS: OLANZapine 5 mg ODT PO (17:13)
[2024-05-20 20:25] VITALS: BP 116/67; PULSE 82; RESP 17; TEMP 36.4; O2SAT 97
[2024-05-20] MEDS: doxepin 10 mg Capsule PO (21:08)
[2024-05-20] MEDS: zolpidem 5 mg Tablet PO (21:08)
[2024-05-20] MEDS: acetaminophen 325 mg Tablet 650 MG PO (21:10)
[2024-05-21 06:00] VITALS: BP 123/67; PULSE 82; RESP 18; TEMP 36.4; O2SAT 98
[2024-05-21] MEDS: diphenhydrAMINE 50 mg/mL SDV 1mL IM (06:25)
--- NOTE | 2024-05-21 06:41 | PC.NURSE ---
Around 0615 pt came up to this nurse and said that he has purposefully ate something he was allergiic to so he could see if he was still allergic to it or not. Pt complained of an upset stomach and asked for his toothbrush and toothpaste. Nursing staff then heard pt throwing up in his room. was notified and a one time order for Benadryl 50mg IM was given. Pt was given Benadryl shot in his right deltoid at 0625. Vitals were taken BP 119/79 HR 90, )2 99 and RR 18. At 0647 pt states that he is no longer feeling sick to his stomach. All questions have been answered at this time
[2024-05-21 06:49] VITALS: BP 119/79; PULSE 90; RESP 16; O2SAT 99
[2024-05-21] MEDS: propranolol 20 mg Tablet PO ×2 (08:35→21:20)
[2024-05-21] MEDS: OLANZapine 5 mg ODT PO ×2 (08:35→17:05)
[2024-05-21] MEDS: hyDROXYzine 25 mg Capsule 50 MG PO (13:01)
[2024-05-21] MEDS: nicotine 4 mg lozenge MUCOUS MEM ×3 (13:02→21:21)
[2024-05-21 14:00] VITALS: BP 110/64; PULSE 66; RESP 16; TEMP 36.6; O2SAT 98
--- NOTE | 2024-05-21 15:57 | PC.NURSE ---
Approximately around noon, the patient used the patient phone to contact the hospital registration in attempt to be transferred to another floor/room, the shop clerk then patched the nurses station into the call and when the patient realized this, quickly hung up the phone and walked up to the window and asked this BORDER PATROL OFFICER call I talk to you in my room The patient asked this nurse I am putting in another request to switch to another room and floor because I am tired of being trapped here and I would like to have my stuff back and I don't even care if I have 05/02 surveillance, and also do not tell the doctor this, because he scares me and I would like also to request a new doctor. Eliana made aware of this, and spoke with patient. The patient is now laying in room on bed w/ even and unlabored respirations.
--- NOTE | 2024-05-21 17:55 | P.NPUPN_ITS ---
Subjective NPU 2 Subjective: Patient presented today reporting that he is doing okay. He could not explain his bizarre behavior this morning where he took peanut butter, something to which she is allergic to find out if the in fact still had an allergy. We discussed the dangerousness of this behavior and we reached out to [facility] but he will be going as a stepdown unit to continue his treatment and they identified that they would prefer if he was more stable and [facility] beginning of next week. We identified that the facility is open that they have access to the kitchen and all areas on the unit. He was frustrated about that outcome but appeared to understand. He denied any side effects to the medication. Mental Status Exam 2 MSE Comments: This is a tall well-nourished well-developed white male in hospital scrubs with limited grooming and adequate contact. No abnormal movements except for mild psychomotor retardation with less psychomotor agitation at times during the interview. Speech was mostly normal rate and volume with occasional increase in rate and volume. Mood described as I am okay guess I was being impulsive, affect congruent. Thought process was linear. Thought content: Patient denied suicidal or homicidal ideation, there were no delusions reported with grandiose thinking decreasing, ideas of reference with some question of whether he has narcissism intermixed. He denied auditory or visual hallucinations. Attention and concentration were limited and memory was seeming reliable but will need some collateral information to clarify but no more formally tested. He was alert and oriented times person and place. Insight and judgment are impaired and impulse control was limited impaired. Vitals/I&O/Wt Last Vital Signs Temp 97.9 F 05/21/24 20:02 Pulse 93 05/21/24 20:02 Resp 18 05/21/24 20:02 BP 123/77 05/21/24 20:02 Pulse Ox 97 05/21/24 20:02 O2 Del Method Room Air 05/21/24 20:02 Data NPU 05/14/24 21:30 05/14/24 21:30 A&P Assessment and plan (1) Bipolar affective, manic, unspec: (2) Post traumatic stress disorder: Plan 29-year-old male admitted with concerns by family of the patient being suicidal or homicidal having endured a traumatic episode but appearing quite agitated, and possibly manic. The patient will continue to require acute inpatient hospitalization. 1. Continue current medication. Though he is no longer taking Viibryd or Vyvanse. Started Abilify 5 mg p.o. daily and increased to 10 mg p.o. daily. 2.? Encourage sober living treatment after discharge at the highest level of care to which he is willing to commit. 3.??Continue every 15 minute checks for safety. 4. Tentative plan for discharge tomorrow. 5. Encourage individual, group and milieu therapies. 6. Secondary to impulsive behavior and with consultation with [facility] who will be in stepdown unit we will plan for discharge on 05/26/2024. Continue to have regular conversation with his . She continues to have expressed frustration about the process. Involuntary Hold Information 2 96 Hour Hold: 96 Hour Involuntary Admission: Yes 96 Hour Hold Ending Date: 05/20/24 96 Hour Hold Ending Time: 20:48 Attestations NPU 2 Medical Necessity Statement*: Inpatient hospitalization is medically necessary and?the clinically appropriate intervention at this time.? We will monitor/initiate medications and make changes as indicated. Likely length of stay 5-6 days. Coding Level of Care Code Acute Code for [facility] Fwd Diagnoses Bipolar affective, manic, unspec F31.10 Post traumatic stress disorder F43.10
[2024-05-21 20:02] VITALS: BP 123/77; PULSE 93; RESP 18; TEMP 36.6; O2SAT 97
[2024-05-21] MEDS: doxepin 10 mg Capsule PO (21:20)
[2024-05-21] MEDS: ARIPiprazole 10 mg Tablet PO (21:21)
[2024-05-21] MEDS: zolpidem 5 mg Tablet PO (21:21)
[2024-05-22] MEDS: nicotine 4 mg lozenge MUCOUS MEM ×4 (03:57→21:41)
[2024-05-22] MEDS: diphenhydrAMINE 50 mg Capsule PO (03:57)
[2024-05-22 06:00] VITALS: BP 108/65; PULSE 63; RESP 17; O2SAT 97
[2024-05-22] MEDS: propranolol 20 mg Tablet PO ×2 (09:29→21:41)
[2024-05-22] MEDS: OLANZapine 5 mg ODT PO ×2 (09:34→14:50)
[2024-05-22 14:00] VITALS: BP 122/70; PULSE 83; RESP 16; TEMP 36.7; O2SAT 98
--- NOTE | 2024-05-22 16:58 | P.NPUPN_ITS ---
Subjective NPU 2 Subjective: Patient presented today reporting that he is doing better. He endorsed having no moments today where he felt like he was losing his control of the way he was thinking about being here. We continued to discuss a plan to discharge him on Sunday barring any additional setbacks. We continue to talk about figuring out a way to incorporate the loss of his son in the normal tereza on of his life. He was able to talk about different aspects of life outside of the hospital without getting frustrated or asking for an explanation for why he could not leave. She denied any side effects to the medication and reports it being switched to bedtime seems to be better. Mental Status Exam 2 MSE Comments: This is a tall well-nourished well-developed white male in hospital scrubs with limited grooming and adequate contact. No abnormal movements except for mild psychomotor retardation with no psychomotor agitation at times during the interview. Speech was mostly normal rate and volume. Mood described as better, affect congruent. Thought process was linear and more organized. Thought content: Patient denied suicidal or homicidal ideation, there were no delusions reported with grandiose thinking decreasing, ideas of reference with some question of whether he has narcissism intermixed. He denied auditory or visual hallucinations. Attention and concentration were limited and memory was seeming reliable but will need some collateral information to clarify but no more formally tested. He was alert and oriented times person and place. Insight and judgment are impaired and impulse control was limited impaired. Vitals/I&O/Wt Last Vital Signs Temp 98.0 F 05/22/24 14:00 Pulse 83 05/22/24 14:00 Resp 16 05/22/24 14:00 BP 122/70 05/22/24 14:00 Pulse Ox 98 05/22/24 14:00 O2 Del Method Room Air 05/22/24 06:00 Data NPU 05/14/24 21:30 05/14/24 21:30 A&P Assessment and plan (1) Bipolar affective, manic, unspec: (2) Post traumatic stress disorder: Plan 29-year-old male admitted with concerns by family of the patient being suicidal or homicidal having endured a traumatic episode but appearing quite agitated, and possibly manic. The patient will continue to require acute inpatient hospitalization. 1. Continue current medication. Though he is no longer taking Viibryd or Vyvanse. Started Abilify 5 mg p.o. daily and increased to 10 mg p.o. daily. Switched dosing to nightly. 2.? Encourage sober living treatment after discharge at the highest level of care to which he is willing to commit. 3.??Continue every 15 minute checks for safety. 4. Tentative plan for discharge tomorrow. 5. Encourage individual, group and milieu therapies. 6. Secondary to impulsive behavior and with consultation with [facility] who will be in stepdown unit we will plan for discharge on 05/26/2024. Continue to have regular conversation with his . She continues to have expressed frustration about the process. Involuntary Hold Information 2 96 Hour Hold: 96 Hour Involuntary Admission: Yes 96 Hour Hold Ending Date: 05/20/24 96 Hour Hold Ending Time: 20:48 Other Hold: Hold End Date: 05/28/24 Attestations NPU 2 Medical Necessity Statement*: Inpatient hospitalization is medically necessary and?the clinically appropriate intervention at this time.? We will monitor/initiate medications and make changes as indicated. Likely length of stay 4 days. Coding Level of Care Code Acute Code for [facility] Fwd Diagnoses Bipolar affective, manic, unspec F31.10 Post traumatic stress disorder F43.10
[2024-05-22 19:50] VITALS: BP 120/82; PULSE 98; RESP 18; TEMP 36.7; O2SAT 96
[2024-05-22] MEDS: doxepin 10 mg Capsule PO (21:40)
[2024-05-22] MEDS: zolpidem 5 mg Tablet PO (21:40)
[2024-05-22] MEDS: ARIPiprazole 10 mg Tablet PO (21:40)
[2024-05-22] MEDS: hyDROXYzine 25 mg Capsule 50 MG PO (21:41)
[2024-05-22] MEDS: neomycin-poly-bacitracin oint 28 gm 1 APPLIC TOPICAL (21:58)
[2024-05-23 06:00] VITALS: BP 112/72; PULSE 76; RESP 16; TEMP 36.6; O2SAT 98
[2024-05-23] MEDS: propranolol 20 mg Tablet PO ×2 (09:07→21:10)
[2024-05-23] MEDS: acetaminophen 325 mg Tablet 650 MG PO (10:49)
[2024-05-23] MEDS: OLANZapine 5 mg ODT PO ×3 (10:50→20:45)
[2024-05-23] MEDS: nicotine 4 mg lozenge MUCOUS MEM (11:50)
[2024-05-23] MEDS: loperamide 2 mg Capsule PO (13:10)
[2024-05-23] MEDS: hyDROXYzine 25 mg Capsule 50 MG PO (13:57)
[2024-05-23 14:00] VITALS: BP 105/64; PULSE 70; RESP 18; TEMP 37.1; O2SAT 98
--- NOTE | 2024-05-23 14:42 | P.NPUPN_ITS ---
Subjective NPU 2 Subjective: Patient presented today reporting that he is feeling the process is moving smoothly. He endorsed believing that he needed to be at the program by 10 AM on Sunday. We discussed reaching out to figure out the validity of that. Otherwise he reports continuing to adjust to the Abilify without major problems. He denied any side effects to the medication and reports feeling like he is starting to settle down with his thoughts. We discussed the fact that there did not seem to be any obstacles to a Sunday discharge. Mental Status Exam 2 MSE Comments: This is a tall well-nourished well-developed white male in hospital scrubs with limited grooming and adequate contact. No abnormal movements except for mild psychomotor retardation with no psychomotor agitation at times during the interview. Speech was mostly normal rate and volume. Mood described as better, affect congruent. Thought process was linear and more organized. Thought content: Patient denied suicidal or homicidal ideation, there were no delusions reported with grandiose thinking decreasing, ideas of reference with some question of whether he has narcissism intermixed. He denied auditory or visual hallucinations. Attention and concentration were limited and memory was seeming reliable but will need some collateral information to clarify but no more formally tested. He was alert and oriented times person and place. Insight and judgment are impaired and impulse control was limited impaired. Vitals/I&O/Wt Last Vital Signs Temp 97.8 F 05/23/24 06:00 Pulse 76 05/23/24 06:00 Resp 16 05/23/24 06:00 BP 112/72 05/23/24 06:00 Pulse Ox 98 05/23/24 06:00 O2 Del Method Room Air 05/23/24 06:00 Data NPU 05/14/24 21:30 05/14/24 21:30 A&P Assessment and plan (1) Bipolar affective, manic, unspec: (2) Post traumatic stress disorder: Plan 29-year-old male admitted with concerns by family of the patient being suicidal or homicidal having endured a traumatic episode but appearing quite agitated, and possibly manic. The patient will continue to require acute inpatient hospitalization. 1. Continue current medication. Though he is no longer taking Viibryd or Vyvanse. Started Abilify 5 mg p.o. daily and increased to 10 mg p.o. daily. Switched dosing to nightly. 2.? Encourage sober living treatment after discharge at the highest level of care to which he is willing to commit. 3.??Continue every 15 minute checks for safety. 4. Tentative plan for discharge tomorrow. 5. Encourage individual, group and milieu therapies. 6. Secondary to impulsive behavior and with consultation with [facility] who will be in stepdown unit we will plan for discharge on 05/26/2024. Continue to have regular conversation with his . She continues to have expressed frustration about the process. Involuntary Hold Information 2 96 Hour Hold: 96 Hour Involuntary Admission: Yes 96 Hour Hold Ending Date: 05/20/24 96 Hour Hold Ending Time: 20:48 Other Hold: Hold End Date: 05/28/24 Attestations NPU 2 Medical Necessity Statement*: Inpatient hospitalization is medically necessary and?the clinically appropriate intervention at this time.? We will monitor/initiate medications and make changes as indicated. Likely length of stay 3 days. Coding Level of Care Code Acute Code for [facility] Fwd Diagnoses Bipolar affective, manic, unspec F31.10 Post traumatic stress disorder F43.10
--- NOTE | 2024-05-23 16:07 | PC.NURSE ---
anxiety Requesting medication for anxiety following visit with . Patient rates anxiety high. Administered zyprexa 5mg ODT.
[2024-05-23] MEDS: nicotine 2 mg Gum BUCCAL (17:32)
[2024-05-23 19:38] VITALS: BP 107/63; PULSE 80; RESP 16; TEMP 36.8; O2SAT 96
[2024-05-23] MEDS: zolpidem 5 mg Tablet PO (20:45)
[2024-05-23] MEDS: ARIPiprazole 10 mg Tablet PO (20:45)
[2024-05-23] MEDS: doxepin 10 mg Capsule PO (20:45)
--- NOTE | 2024-05-23 21:21 | PC.NURSE ---
IN ROOM, HAS BEEN UP INTERACTING WITH STAFF AND PEERS. IN MUCH BETTER SPIRITS THIS SHIFT. DENIES SI/HI AND AVH AT THIS TIME. RATES ANXIETY 12/23 AND DEPRESSION 10/23. ZYDIS 5 MG WAS GIVEN ORDERED FOR ANXIETY. TAKES NIGHT TIME MEDICATION WITHOUT ISSUES. DENIES PAIN. SUPPORT VOICED.
[2024-05-24 05:56] VITALS: BP 96/58; PULSE 66; RESP 16; TEMP 36.5; O2SAT 98
[2024-05-24] MEDS: propranolol 20 mg Tablet PO ×2 (08:00→20:31)
[2024-05-24] MEDS: loperamide 2 mg Capsule PO (08:01)
--- NOTE | 2024-05-24 08:12 | PC.NURSE ---
Refused triple antibiotic ointment. Stated he does not need it anymore.
--- NOTE | 2024-05-24 08:44 | P.NPUPN_ITS ---
Subjective NPU 2 Subjective: Patient presented today reporting that he is doing all right. He was engaged in following the [employer] football which she enjoys greatly. He did at 1 point request that he be allowed to go to charge tomorrow which we discussed the fact that we do not do day passes or home passes and so the only way that would occur is if we actually discharged home and that was not the current plan. We discussed however the fact that he seems to be doing well enough that at this point we feel confident that a Sunday morning discharge is feasible. We agreed we would work tomorrow to make sure we understood what the time constraints were to getting to that program that he is going to. He denied any side effects of medication. Mental Status Exam 2 MSE Comments: This is a tall well-nourished well-developed white male in hospital scrubs with limited grooming and adequate contact. No abnormal movements except for mild psychomotor retardation with no psychomotor agitation at times during the interview. Speech was mostly normal rate and volume. Mood described as better, affect congruent. Thought process was linear and more organized. Thought content: Patient denied suicidal or homicidal ideation, there were no delusions reported with grandiose thinking decreasing, ideas of reference with some question of whether he has narcissism intermixed. He denied auditory or visual hallucinations. Attention and concentration were limited and memory was seeming reliable but will need some collateral information to clarify but no more formally tested. He was alert and oriented times person and place. Insight and judgment are impaired and impulse control was limited impaired. Vitals/I&O/Wt Last Vital Signs Temp 97.7 F 05/24/24 05:56 Pulse 66 05/24/24 05:56 Resp 16 05/24/24 05:56 BP 96/58 05/24/24 05:56 Pulse Ox 98 05/24/24 05:56 O2 Del Method Room Air 05/24/24 05:56 Data NPU 05/14/24 21:30 05/14/24 21:30 A&P Assessment and plan (1) Bipolar affective, manic, unspec: (2) Post traumatic stress disorder: Plan 29-year-old male admitted with concerns by family of the patient being suicidal or homicidal having endured a traumatic episode but appearing quite agitated, and possibly manic. The patient will continue to require acute inpatient hospitalization. 1. Continue current medication. Though he is no longer taking Viibryd or Vyvanse. Started Abilify 5 mg p.o. daily and increased to 10 mg p.o. daily. Switched dosing to nightly. 2.? Encourage sober living treatment after discharge at the highest level of care to which he is willing to commit. 3.??Continue every 15 minute checks for safety. 4. Tentative plan for discharge tomorrow. 5. Encourage individual, group and milieu therapies. 6. Secondary to impulsive behavior and with consultation with [facility] who will be in stepdown unit we will plan for discharge on 05/26/2024. Involuntary Hold Information 2 96 Hour Hold: 96 Hour Involuntary Admission: Yes 96 Hour Hold Ending Date: 05/20/24 96 Hour Hold Ending Time: 20:48 Other Hold: Hold End Date: 05/28/24 Attestations NPU 2 Medical Necessity Statement*: Inpatient hospitalization is medically necessary and?the clinically appropriate intervention at this time.? We will monitor/initiate medications and make changes as indicated. Likely length of stay 2 days. Coding Level of Care Code Acute Code for [facility] Fwd Diagnoses Bipolar affective, manic, unspec F31.10 Post traumatic stress disorder F43.10
[2024-05-24] MEDS: OLANZapine 5 mg ODT PO ×3 (10:34→22:20)
[2024-05-24] MEDS: nicotine 4 mg lozenge MUCOUS MEM ×4 (11:11→20:31)
[2024-05-24] MEDS: hyDROXYzine 25 mg Capsule 50 MG PO ×2 (12:04→20:31)
[2024-05-24 14:00] VITALS: BP 128/75; PULSE 89; RESP 18; TEMP 36.4; O2SAT 97
[2024-05-24 19:27] VITALS: BP 107/67; PULSE 118; RESP 18; TEMP 36.8; O2SAT 98
[2024-05-24] MEDS: zolpidem 5 mg Tablet PO (20:31)
[2024-05-24] MEDS: doxepin 10 mg Capsule PO (20:31)
[2024-05-24] MEDS: ARIPiprazole 10 mg Tablet PO (20:31)
--- NOTE | 2024-05-24 22:17 | PC.NURSE ---
UP PACING IN THE HALLS. DENIES SI/HI AND AVH AT THIS TIME. DENIES PAIN. RATES ANXIETY /10 AND DEPRESSION /. VISTARIL 50 MG WAS GIVEN FOR INCREASED ANXIETY. PT SHAVED WITH [facility]AN [employer] DRIVER AT SIDE. SUPPORT WAS VOICED.
[2024-05-24] MEDS: acetaminophen 325 mg Tablet 650 MG PO (22:20)
[2024-05-24] MEDS: trazodone 50 mg Tablet PO (22:20)
[2024-05-25 05:56] VITALS: BP 115/78; PULSE 76; RESP 18; TEMP 36.9; O2SAT 98; BMI 24.0
--- NOTE | 2024-05-25 06:17 | PC.NURSE ---
PT CAME BACK TO NURSES STATION AFTER TAKING PM MEDS STATING HE CAN NOT SLEEP. PT WAS GIVEN TRAZODONE 50 MG AND ZYDIS 5 MG ORDERED FOR SLEEP AND ANXIETY. MEDICATIONS DEEMED EFFECTIVE. SLEPT APPROXIMATELY 8 HOURS.
[2024-05-25] MEDS: propranolol 20 mg Tablet PO ×2 (10:13→21:57)
[2024-05-25] MEDS: OLANZapine 5 mg ODT PO ×3 (10:14→18:24)
[2024-05-25] MEDS: nicotine 4 mg lozenge MUCOUS MEM ×3 (10:58→18:06)
[2024-05-25 14:00] VITALS: BP 108/71; PULSE 103; RESP 18; TEMP 36.6; O2SAT 98
[2024-05-25] MEDS: acetaminophen 325 mg Tablet 650 MG PO (17:11)
--- NOTE | 2024-05-25 18:34 | P.NPUPN_ITS ---
Subjective NPU 2 Subjective: Patient presented today reporting that that he is feeling happy about making it through this challenging time and feeling optimistic about going to [facility] tomorrow. He reports feeling like this has been helpful in some ways and his and his relationship as well as preparing him for the work he has to do at this new program. He denies any side effects of the medication and he feels very optimistic and ready about discharge tomorrow morning. Mental Status Exam 2 MSE Comments: This is a tall well-nourished well-developed white male in hospital scrubs with limited grooming and adequate contact. No abnormal movements except for mild psychomotor retardation with no psychomotor agitation at times during the interview. Speech was mostly normal rate and volume. Mood described as better, affect congruent. Thought process was linear and more organized. Thought content: Patient denied suicidal or homicidal ideation, there were no delusions reported with grandiose thinking decreasing, ideas of reference with some question of whether he has narcissism intermixed. He denied auditory or visual hallucinations. Attention and concentration were limited and memory was seeming reliable but will need some collateral information to clarify but no more formally tested. He was alert and oriented times person and place. Insight and judgment are impaired and impulse control was limited impaired. Vitals/I&O/Wt Last Vital Signs Temp 97.9 F 05/25/24 14:00 Pulse 103 H 05/25/24 14:00 Resp 18 05/25/24 14:00 BP 108/71 05/25/24 14:00 Pulse Ox 98 05/25/24 14:00 O2 Del Method Room Air 05/25/24 14:00 Weight last 48 hrs Weight 87.26 kg Data NPU 05/14/24 21:30 05/14/24 21:30 A&P Assessment and plan (1) Bipolar affective, manic, unspec: (2) Post traumatic stress disorder: Plan 29-year-old male admitted with concerns by family of the patient being suicidal or homicidal having endured a traumatic episode but appearing quite agitated, and possibly manic. The patient will continue to require acute inpatient hospitalization. 1. Continue current medication. Though he is no longer taking Viibryd or Vyvanse. Started Abilify 5 mg p.o. daily and increased to 10 mg p.o. daily. Switched dosing to nightly. 2.? Encourage sober living treatment after discharge at the highest level of care to which he is willing to commit. 3.??Continue every 15 minute checks for safety. 4. Tentative plan for discharge tomorrow. 5. Encourage individual, group and milieu therapies. 6. Secondary to impulsive behavior and with consultation with [facility] who will be in stepdown unit we will plan for discharge tomorrow. Involuntary Hold Information 2 96 Hour Hold: 96 Hour Involuntary Admission: Yes 96 Hour Hold Ending Date: 05/20/24 96 Hour Hold Ending Time: 20:48 Other Hold: Hold End Date: 05/28/24 Attestations NPU 2 Medical Necessity Statement*: Inpatient hospitalization is medically necessary and?the clinically appropriate intervention at this time.? We will monitor/initiate medications and make changes as indicated. Likely length of stay 1 day. Coding Level of Care Code Acute Code for [facility] Fwd Diagnoses Bipolar affective, manic, unspec F31.10 Post traumatic stress disorder F43.10
[2024-05-25] MEDS: ARIPiprazole 10 mg Tablet PO (20:55)
[2024-05-25] MEDS: doxepin 10 mg Capsule PO (20:55)
[2024-05-25] MEDS: trazodone 50 mg Tablet PO (20:56)
[2024-05-25] MEDS: hyDROXYzine 25 mg Capsule 50 MG PO (20:56)
[2024-05-25] MEDS: loperamide 2 mg Capsule PO (20:57)
[2024-05-25] MEDS: zolpidem 5 mg Tablet PO (20:57)
[2024-05-25 21:35] VITALS: BP 112/54; PULSE 79; RESP 18; TEMP 36.6; O2SAT 96
[2024-05-26 06:00] VITALS: BP 103/59; PULSE 68; RESP 18; TEMP 36.5; O2SAT 99
[2024-05-26] MEDS: propranolol 20 mg Tablet PO (08:12)
[2024-05-26] MEDS: loperamide 2 mg Capsule PO (08:44)
[2024-05-26] MEDS: OLANZapine 5 mg ODT PO (08:44)
--- NOTE | 2024-05-26 08:45 | P.NPUDS_ITS ---
Diagnoses at Discharge Discharge Diagnosis (1) Bipolar affective, manic, unspec: Status: Acute (2) Post traumatic stress disorder: Status: Acute Reason for Visit Reason for Visit: MHE Brief History: History of Present Illness Rubio Conte is a 29 year old male who presented to the emergency department accompanied by family members. The family members had provided an affidavit including the patient himself stating that they were concerned that Rubio was having a mental breakdown. The family had been concerned that the patient may be a danger to himself. The patient was admitted to the neuropsychiatric unit for further evaluation and treatment. The patient was an extremely guarded and agitated historian and was unable to provide any meaningful information regarding his reason for being here. The patient allegedly had endured a tragedy when his child of approximately 1 year had due to medical causes in the home in December 2023. The patient had allegedly witnessed the of the child and had apparently been holding child after his . The patient had described to staff having problems with intense nightmares and difficulty falling asleep. The patient had allegedly been unable to take this event out of his mind and had been having reoccurring thoughts and visions regarding the of his child. The patient had reported to staff that he was having plans to leave here immediately and reported that he had already had made plans to go to a long-term facility. The patient on interview had expressed displeasure that the team had not interviewed him earlier requesting that the magnetic tape typewriter operator of this note having been present immediately after admission. He had stated that he was upset that the magnetic tape typewriter operator of this note was not certain of what medications he was on. At that point, the patient had stated that he did not wish to talk to the magnetic tape typewriter operator of the note any longer and became agitated to the point that he had required as needed medications due to significant aggression. The patient had extraordinary irritability. He had allegedly been on medications reportedly Vyvanse, Viibryd, propranolol, and prazosin prescribed by a nurse practitioner and had the he had discontinued these medications 2 weeks ago with family members reporting significant changes in mood and increased anger and agitation noted. Patient had not endorsed any illicit drug use or alcohol use currently. Inpatient psychiatric history: None reported Outpatient psychiatric history: Unknown, although the patient had been placed on medications including Vyvanse, Viibryd, propranolol, and prazosin at unspecified doses. Medical history: None Surgical history: none Allergies: Peanut, cayenne pepper foods Current medications: None Substance abuse history unknown Legal history: Unknown Family psychiatric history: Unknown Social history: Patient is and has other children in the home. 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 He had reported the traumatic of a child 2023. Involuntary Hold Information 96 Hour Hold: 96 Hour Involuntary Admission: Yes 96 Hour Hold Ending Date: 05/20/24 96 Hour Hold Ending Time: 20:48 Other Hold: Hold End Date: 05/28/24 Mental Status Exam 2 MSE Comments: This is a tall well-nourished well-developed white male in hospital scrubs with limited grooming and adequate contact. No abnormal movements except for mild psychomotor retardation with no psychomotor agitation at times during the interview. Speech was mostly normal rate and volume. Mood described as better, affect congruent. Thought process was linear and more organized. Thought content: Patient denied suicidal or homicidal ideation, there were no delusions reported with grandiose thinking decreasing, ideas of reference with some qu estion of whether he has narcissism intermixed. He denied auditory or visual hallucinations. Attention and concentration were limited and memory was seeming reliable but will need some collateral information to clarify but no more formally tested. He was alert and oriented times person and place. Insight and judgment are impaired and impulse control was limited impaired. Discharge Data Studies Completed and Pending: Laboratory Results WBC 7.98 10^3/uL (3.2 9-11.43) 05/14/24 21: RBC 5.01 10^6/uL (3.8 5-5.65) 05/14/24 21:30 Hgb 14.80 g/dL (11.27 -16.99) 05/14/24 21: Hct 43.9 % (37-53) 05/14/24 21:30 MCV 87.6 fl (82-101) 05/14/24 21:30 MCH 29.5 pg (27-33) 05/14/24 21: MCHC 33.7 g/dL (30-55) 05/14/24 21: RDW 11.9 % (12.1-15.1 ) L 05/14/24 21:30 Plt Count 215 10^3/cmm (157 -399) 05/14/24 21:30 MPV 10.1 fL (7.4-10.4 ) 05/14/24 21: Neut % (Auto) 60.9 % 05/14/24 21:30 Lymph % (Auto) 30.6 % 05/14/24 21: [place] % (Auto) 6.4 % 05/14/24 21: Eos % (Auto) 1.4 % 05/14/24 21: Baso % (Auto) 0.4 % 05/14/24 21: Neut # (Auto) 4.87 10^3/uL (1.8 -7.7) 05/14/24 21: Lymph # (Auto) 2.4 10^3/uL (0.8- 4.8) 05/14/24 21: [place] # (Auto) 0.5 10^3/uL (0.2- 0.9) 05/14/24 21: Eos # (Auto) 0.1 10^3/uL (0.0- 0.8) 05/14/24 21: Baso # (Auto) 0.0 10^3/uL (0.0- 0.1) 05/14/24 21: Nucleated RBC % (a uto) 0 % 05/14/24 21: Nucleated RBCs # 0.0 /100WBC 05/14/24 21:30 Sodium 138 mmol/L (136-1 45) 05/14/24 21: Potassium 4.3 mmol/L (3.5-5 .1) 05/14/24 21: Chloride 101 mmol/L (98-10 7) 05/14/24 21:30 Carbon Dioxide 27 mmol/L (22-29) 05/14/24 21:30 Anion Gap 14.3 (5-19) 05/14/24 21:30 BUN 12 mg/dL (6-20) 05/14/24 21:30 Creatinine 0.9 mg/dL (0.7-1. 2) 05/14/24 21:30 GFR Calculation 99.1 mL/min (90-1 30) 05/14/24 21: Glucose 96 mg/dL (65-115) 05/14/24 21:30 Calculated Osmolal ity 286 mOsm/kg (285- 295) 05/14/24 21:30 Calcium 9.0 mg/dL (8.5-10 .5) 05/14/24 21:30 Total Bilirubin 0.5 mg/dL (0.15-1 .2) 05/14/24 21:30 AST 38 U/L (0-40) 05/14/24 21:30 ALT 22 U/L (0-41) 05/14/24 21: Alkaline Phosphata se 134 U/L (40-130) H 05/14/24 21: Total Protein 7.8 g/dL (6.6-8.7 ) 05/14/24 21: Albumin 4.6 g/dL (3.5-5.2 ) 05/14/24: Globulin 3.2 g/dL (1.3-4.6 ) 05/14/24 21: TSH 1.39 uIU/mL (0.27 -4.20) 05/14/24 21: Urine Color Yellow (Yellow) 05/16/24 09:25 Urine Appearance Clear (CLEAR) 05/16/24 09:25 Urine pH 6.0 (5-7) 05/16/24 09:25 Ur Specific Gravit y 1.023 (1.005-1.0 30) 05/16/24 09:25 Urine Protein Negative (Negati ve) 05/16/24 09:25 Urine Glucose (UA) Negative (Normal ) 05/16/24 09:25 Urine Ketones Trace (Negative) 05/16/24 09: Urine Blood Negative (Negati ve) 05/16/24 09:25 Urine Nitrate Negative (Negati ve) 05/16/24 09:25 Urine Bilirubin Negative (Negati ve) 05/16/24 09:25 Urine Urobilinogen 1.0 mg/dL (Negati ve) 05/16/24 09:25 Ur Leukocyte Qi ase Trace (Negative) A 05/16/24 09:25 Urine RBC 0-2 /hpf (0-2) 05/16/24 09:25 Urine WBC 0-5 /hpf (0-5) 05/16/24 09:25 Ur Squamous Epith Cells 0-5 /hpf (0-5) 05/16/24 09:25 Amorphous Sediment Not Reportable 05/16/24 09:25 Urine Bacteria None seen /hpf (N ONE) 05/16/24 09:25 Hyaline Casts 2.05 /lpf 05/16/24 09:25 Urine Mucus 2+ /hpf 05/16/24 09:25 Salicylates < 0.3 mg/dL (3-10 ) L 05/14/24 21:30 Urine Opiates Scre en Negative ng/mL (N egative) 05/16/24 09:25 Acetaminophen < 5.0 ug/mL (10-3 0) L 05/14/24 21:30 Ur Barbiturates Sc reen Negative ng/mL (N egative) 05/16/24 09:25 Ur Phencyclidine S crn Negative ng/mL (N egative) 05/16/24 09:25 Ur Amphetamines Sc reen Negative ng/mL (N egative) 05/16/24 09:25 U Benzodiazepines Scrn Positive ng/mL (N egative) H 05/16/24 09:25 Urine Cocaine Scre en Negative ng/mL (N egative) 05/16/24 09:25 U Marijuana (THC) Screen Positive ng/mL (N egative) H 05/16/24 09:25 Ethyl Alcohol < 10 mg/dL (0-10) 05/14/24 21:30 Vitals: Last Vital Signs Temp 97.7 F 05/26/24 06:00 Pulse 68 05/26/24 06:00 Resp 18 05/26/24 06:00 BP 103/59 05/26/24 06:00 Pulse Ox 99 05/26/24 06:00 O2 Del Method Room Air 05/26/24 06:00 Discharge Plan Discharge Patient Disposition: Home Condition: Stable Prescriptions: New trazodone 50 mg Tablet 50 mg PO BEDTIME PRN (Reason: Sleep) 30 Days Qty: 30 1RF doxepin 10 mg Capsule 10 mg PO BEDTIME 30 Days Qty: 30 1RF zolpidem 5 mg Tablet 5 mg PO BEDTIME PRN (Reason: Insomnia) 30 Days Qty: 30 1RF olanzapine 5 mg Tablet,Disintegrating 5 mg PO Q4H PRN (Reason: Agitation/Psychosis) 30 Days Qty: 30 1RF hydroxyzine pamoate 25 mg Capsule 50 mg PO Q6H PRN (Reason: Anxiety) 30 Days Qty: 120 1RF aripiprazole 10 mg Tablet 10 mg PO BEDTIME 30 Days Qty: 30 1RF Continued propranolol 20 mg tablet 20 mg PO BID 30 Days Qty: 60 1RF Rx Instructions: last filled 05/13/24 Discontinued lisdexamfetamine [Vyvanse] 20 mg capsule 20 mg PO DAILY Rx Instructions: last filled 04/18/24 vilazodone [Viibryd] 40 mg tablet 40 mg PO DAILY Rx Instructions: last filled 04/18/24 Discharge Orders: Discharge Order (Routine); Ordered 05/26/24 Ordered By: Jabari Jo Referrals: [facility] [Other] - 05/21/24 9:30 am Cj Sargent Jr, MD [Family Provider] - Discharge Activity: Resume usual activity Patient Instructions: Opioid Safety Discharge Attestations NPU Time Spent in Discharge Care*: less than 30 min Specific Discharge Activities: Specific discharge activities: educating patient, discussing with case hardener/social workers/dc planners, documenting/other paperwork and evaluating patient/reviewing data Coding Level of Care Code Acute Code for g Fwd Diagnoses Bipolar affective, manic, unspec F31.10 Post traumatic stress disorder F43.10
--- NOTE | 2024-05-26 08:47 | PC.NURSE ---
During morning assessment Patient reports some anxiety about being unsure about the time when he will be discharged today, but stated that he is staying to myself . Patient requested zyprexa. This nurse administered zyprexa 5mg ODT. Patient also requested imodium for loose bowels. Patient stated that he feels ready to leave the unit and go to [facility]. Denies AVH, depression, and anxiety.
[2024-05-26 08:51] VITALS: BP 112/65; PULSE 18; RESP 83; TEMP 36.6; O2SAT 97
[2024-05-26 08:55] VITALS: BP 112/65; PULSE 83; RESP 18; TEMP 36.6; O2SAT 97
== END 2024-05-26 09:33 | disposition home or self-care (01) | DRG 885 ==
LOC: ER 21:07 → NP 21:41
PROVIDERS: Admitting Provider Psychiatry & Neurology Psychiatry; Emergency Provider Emergency Medicine; Family Provider Family Medicine; Visit Provider Psychiatry & Neurology Psychiatry
DX: F31.9 Bipolar disorder, unspecified (principal); F43.10 Post-traumatic stress disorder, unspecified; Z63.4 Disappearance and death of family member
CPT/HCPCS: 80053; 80306; 80307; 81001; 84443; 85025; 93005; 96372; 97150; 97165; 99285; J1200; J1630; J2060; J8597; Q0163; Q0169